=== PATIENT | female | born 1975 | race Caucasian/White ===

== ENCOUNTER 2020-09-07 13:28 | Emergency (ER) | payer OTHER, SELFPAY ==
[2020-09-07 14:00] VITALS: BP 161/89; PULSE 93; RESP 18; TEMP 36.8; O2SAT 95; BMI 28.2
[2020-09-07 15:28] LABS: MANUAL DIFF FLAG NO
[2020-09-07 15:29] LABS: Eosinophils Percent Auto 0.4 % (0-4); Hematocrit 40.4 % (37-47); Hemoglobin 13.4 g/dl (12.0-16.0); Imm Gran Abs Auto 0.01 X10*3/uL (0.00-0.03); Imm Gran Pct Auto 0.2 % (0.0-0.4); Lymphocytes Absolute Auto 1.4 X10*3/uL (1.2-4.9); Lymphocytes Percent Auto 28.4 % (20-40); Mean Corpuscular HGB Conc 33.2 g/dl (31.0-35.0); Mean Corpuscular Hemoglobin 31.4 pg (27.0-33.0); Mean Corpuscular Volume 94.6 fL (80-98); Mean Platelet Volume 10.3 fL (9.4-12.3); Monocytes Absolute Auto 0.5 X10*3/uL (0.1-1.2); Monocytes Percent Auto 9.6 % (2-11); Neutrophils Percent Auto 61.4 % (45-73); Platelet Count 245 X10*3/uL (160-400); Red Blood Count 4.27 X10*6/uL (4.20-5.50); Red Cell Distribution Width 12.7 % (11.0-16.0); White Blood Count 4.9 X10*3/uL (4.8-10.8)
[2020-09-07 15:53] LABS: Alanine Aminotransferase 25 U/L (0-31); Albumin Level 3.7 g/dL (3.5-5.0); Alkaline Phosphatase 69 U/L (39-117); Anion Gap 12 (12-20); Aspartate Amino Transferase 25 U/L (5-31); Bilirubin Total 0.4 mg/dL (0.0-1.0); Blood Urea Nitrogen 14 mg/dL (9-16); Calcium 8.5 mg/dL (8.4-10.2); Carbon Dioxide 27 mmol/L (22-29); Chloride 107 mmol/L (96-108); Creatinine Clr Calc Pharmacy 95.4; Estimated Glomerular Filt Rate > 60; Glucose Random 87 mg/dL (60-115); Potassium 3.8 mmol/L (3.3-5.1); Sodium 142 mmol/L (135-145); Total Protein 7.2 g/dL (6.5-8.0)
[2020-09-07] MEDS: 0.9 % Sodium Chloride 1,000 ML 999 ML IVCONT ×2 (17:55→18:34)
[2020-09-07] MEDS: Metoclopramide HCl 10 MG/2 ML VIAL IVPUSH (17:55)
[2020-09-07] MEDS: diphenhydrAMINE HCL 50 MG/ML VIAL IVPUSH (17:55)
[2020-09-07 18:36] VITALS: BP 158/88; PULSE 92; RESP 18
--- NOTE | 2020-09-07 18:49 | ED.NAVMDI ---
HPI - Nausea/Vomiting/Diarrhea General Chief complaint: Nausea/Vomiting/Diarrhea Stated complaint: vomiting, dizziness, shortness of breath Time Seen by Provider: 09/07/20 17:19 Source: patient Mode of arrival: ambulatory Limitations: no limitations History of Present Illness HPI Narrative: 44-year-old female diagnosed COVID positive 2 weeks ago presents with intractable nausea, vomiting, and abdominal pain. Also states that things taste awful and does not feel like eating. She has not been able to eat and drink over the past 24 hours and has had several episodes of diarrhea. Does not report any fevers, chills, chest pain or pressure, palpitations, shortness breath, abdominal distention, dysuria, hematuria, or edema. MD elicited complaint: nausea, vomiting and diarrhea Pertinent past history: other (Positive COVID-19) Onset (ago): week(s) (To) Description of vomiting: watery Description of diarrhea: watery Associated nausea: Yes Associated abdominal pain: Yes Location of pain: diffuse Pain consistency: intermittent Severity: moderate Quality: cramping Relieving factors: none Associated symptoms: denies other symptoms Related Data Previous Rx's Medication Instructions Recorded ondansetron HCl [Zofran] 4 mg PO Q8H PRN #20 tab 09/07/20 Allergies Allergy/AdvReac Type Severity Reaction Status Date / Time No Known Allergies Allergy Verified 09/07/20 14:03 Review of Systems Review of Systems: Constitutional: No Weight loss, No Fever, No Chills, No Night Sweats, No Fatigue, No Malaise ENT/Mouth: No Hearing loss, No Ear Pain, No Nasal Congestion, No Sinus Pain, No Hoarseness, No sore throat, No Rhinorrhea, No Swallowing Difficulty Eyes: No Eye Pain, No Swelling, No Redness, No Foreign Body, No Discharge, No Vision Changes Cardiovascular: No Chest Pain, No SOB, No Dyspnea on Exertion, No Orthopnea, No Edema, No Palpitations Respiratory: No Cough, No Sputum, No Wheezing, No Smoke Exposure, No Dyspnea Gastrointestinal: Positive Nausea, Positive Vomiting, positive Diarrhea, positive abdominal Pain, No Hematochezia, No Melena Genitourinary: no irregular bleeding, No Dysuria, No Urinary Frequency, No Hematuria, No Urinary Incontinence, No Urgency, No Flank Pain, No Urinary Flow Changes, No Hesitancy Musculoskeletal: No joint pain, No Myalgias, No Joint Swelling Skin: No Skin Lesions, No rash Neuro: No Weakness, No Numbness, No Paresthesias, No Loss of Consciousness, No Dizziness, No Headache Psych: No Anxiety/Panic, No Depression, No SI/HI/AH/VH, No Social Issues Heme/Lymph: No Bruising, No Bleeding,No Lymphadenopathy Endocrine: No Polyuria, No Polydipsia, No Temperature Intolerance Yes all other systems are reviewed and are negative Gastrointestinal: Gastrointestinal: Reports nausea PMFSH Past Medical History Attestation statement: The following information was validated with the patient. Source: old records reviewed Medical History No known health problems Social History Social History Advance Directives: No Advance Directives Information Provided: Yes Patient : No Physical Exam Vital Signs: Vital Signs: Last Vital Signs Temp 98.2 F 09/07/20 14:00 Pulse 92 09/07/20 18:36 Resp 18 09/07/20 18:36 BP 158/88 H 09/07/20 18:36 Pulse Ox 95 09/07/20 14:00 Body Mass Index 28.2 Appearance: Alert. Oriented X3. Mild distress. Eyes: Pupils equal, round and reactive to light. ENT: Pharynx normal. Dry mucous membranes. Neck: Normal inspection. Neck supple. CVS: Normal heart rate and rhythm. Pulses normal. Respiratory: No respiratory distress. Breath sounds normal. Abdomen: Soft and nontender. Skin: Skin warm and dry. Normal skin color. Normal skin turgor. Extremities: No lower extremity edema. Neuro: No motor deficit. No sensory deficit. Course Course Course Narrative: 44-year-old female presents 2 weeks status post COVID positive with nausea, vomiting, diarrhea, and inability to taste. Lab values drawn while she was in the emergency department waiting room, no indication of acute findings at this time. Urinalysis is pending. Mucous membranes are dry heart rate slightly tachycardic at 93 beats per minute with a temperature of 98.2?, no indication of SIRS or sepsis secondary to viral infection. Will replete with 2 L of normal saline, give some Reglan and some Benadryl for antiemetic. Approximately 1 hour after receiving 1st bolus patient states to feel much better. Second bolus is infusing. Will discharge home once 2nd bolus is complete. Patient verbalizes understanding of and agrees to plan of care discharge home. MDM - Nausea/Vomiting/Diarrhea MDM Narrative Medical decision making narrative: Dehydration, viral illness, COVID-19 Medical Records Attestation: I reviewed the patient's medical records. Lab Data Attestation: I reviewed the patient's lab results. Result diagrams: 09/07/20 15:24 09/07/20 15:24 Labs: Lab Results 09/07/20 09/07/20 09/07/20 Range/Units 15:24 15:24 19:26 WBC 4.9 (4.8-10.8) X10*3/uL RBC 4.27 (4.20-5.50) X10*6/uL Hgb 13.4 (12.0-16.0) g/dl Hct 40.4 (37-47) % MCV 94.6 (80-98) fL MCH 31.4 (27.0-33.0) pg MCHC 33.2 (31.0-35.0) g/dl RDW 12.7 (11.0-16.0) % Plt Count 245 (160-400) X10*3/uL MPV 10.3 (9.4-12.3) fL Immature Gran % (Auto) 0.2 (0.0-0.4) % Neut % (Auto) 61.4 (45-73) % Lymph % (Auto) 28.4 (20-40) % [place] % (Auto) 9.6 (2-11) % Eos % (Auto) 0.4 (0-4) % Baso % (Auto) 0.0 (0-2) % Lymph # (Auto) 1.4 (1.2-4.9) X10*3/uL [place] # (Auto) 0.5 (0.1-1.2) X10*3/uL Eos # (Auto) 0.0 (0.0-0.4) X10*3/uL Baso # (Auto) 0.0 (0.0-0.2) X10*3/uL Abs Immat Gran (auto) 0.01 (0.00-0.03) X10*3/uL Absolute Neuts (auto) 3.0 (2.0-8.3) X10*3/uL Absolute Nucleated RBC 0.000 (0.0-0.012) X10*3/uL Nucleated RBC % (auto) 0.0 (0.0-0.2) /100WBC Sodium 142 (135-145) mmol/L Potassium 3.8 (3.3-5.1) mmol/L Chloride 107 (96-108) mmol/L Carbon Dioxide 27 (22-29) mmol/L Anion Gap 12 (12-20) BUN 14 (9-16) mg/dL Creatinine 0.80 (0.5-1.4) mg/dL Estim Creat Clear Calc 95.4 Estimated GFR > 60 Random Glucose 87 (60-115) mg/dL Calcium 8.5 (8.4-10.2) mg/dL Total Bilirubin 0.4 (0.0-1.0) mg/dL AST 25 (5-31) U/L ALT 25 (0-31) U/L Alkaline Phosphatase 69 (39-117) U/L Total Protein 7.2 (6.5-8.0) g/dL Albumin 3.7 (3.5-5.0) g/dL Urine Color STRAW Urine Appearance CLEAR Urine pH 6.0 (5.0-8.0) Ur Specific [place] 1.010 (1.005-1.025) Urine Protein NEG (NEG-TRACE) MG/DL Urine Glucose (UA) NEG (NEG) MG/DL Urine Ketones NEG (NEG) MG/DL Urine Blood NEG (NEG) Urine Nitrite NEG (NEG) Ur Leukocyte Esterase NEG (NEG) Critical Care Time Critical Care Time Critical Care Time: Yes Total Critical Care Time: 45 Attestation: I have personally provided critical care time exclusive of time spent on separately billable procedures. Time includes review of laboratory data, radiology results, discussion with consultants, and monitoring for potential decompensation. Interventions were performed as documented. Discharge Plan Discharge Clinical Impression: Dehydration, COVID-19 Patient Disposition: Home, Self-Care Instructions: Dehydration (ED), COVID-19 (Coronavirus Disease 2019) (ED) Additional Instructions: Se le evalu? por s?ntomas relacionados con COVID-19. Le dimos angelia receta para Zofran. [place] medicamento seg?n las indicaciones para aliviar las n?useas y los v?mitos. Beber mucho l?quido. Descansar. Continuar manteniendo el aislamiento social seg?n las pautas estatales y federales. Zhen por elegir [place] departamento de emergencias para anne evaluaci?n. Dulce un seguimiento con anne m?dico de atenci?n primaria seg?n sea necesario. Regrese al departamento de emergencias por cualquier s?ntoma nuevo, preocupante o que empeore. You were evaluated for symptoms related to COVID-19. We gave you a prescription for Zofran. Please take this medication as directed to help with nausea and vomiting. Drink plenty of fluids. Rest. Continue to maintain social isolation per State and Federal guidelines. Thank you for choosing this emergency department for evaluation. Please follow-up with primary care physician as needed. Return to the emergency department for any new, concerning, or worsening symptoms. Prescriptions: New ondansetron HCl [Zofran] 4 mg tablet 4 mg PO Q8H PRN (Reason: nausea and vomiting) Qty: 20 RF: 0
[2020-09-07 19:31] LABS: Glucose Urine UA NEG (NEG); Leukocyte Esterase Urine NEG (NEG); Nitrite Urine NEG (NEG); Urine Blood NEG (NEG); Urine Ketones NEG (NEG); Urine Protein NEG (NEG-TRACE)
[2020-09-07 19:32] LABS: Appearance Urine CLEAR; Color Urine STRAW
== END 2020-09-07 20:47 | disposition home or self-care (01) ==
PROVIDERS: Emergency Provider Internal Medicine
DX: U07.1 COVID-19 (principal); E86.0 Dehydration
CPT/HCPCS: 36415; 80053; 81003; 85025; 96361; 96374; 96375; 99284; J1200; J2765

== ENCOUNTER 2021-03-25 14:27 | Emergency (ER) | payer OTHER, SELFPAY ==
--- NOTE | ~2021-03-25 | CT_ITS ---
EXAMINATION: CT ABDOMEN AND PELVIS WITHOUT CONTRAST CLINICAL INFORMATION: Abdominal pain with question colitis versus kidney stones COMPARISON: None TECHNIQUE: Multidetector volumetric imaging was performed from the superior aspect of the liver through the pubic symphysis. Sagittal and coronal reformatted images were obtained on the technologist's workstation. This CT examination was performed using dose optimization techniques as appropriate, variously including the following: *Automated exposure control *Adjustment of mA and/or kV according to patient size (this includes techniques or standardized protocols for targeted exams where dose is matched to indication/reason for exam; i.e. extremities or head) *Use of iterative reconstruction technique DLP: 629 mGy-cm FINDINGS: LUNG BASES: The visualized lung bases are unremarkable. LIVER, GALLBLADDER, AND BILIARY TREE: The liver is normal in size, shape, and attenuation. No focal hepatic lesion or biliary ductal dilatation is present. The gallbladder is unremarkable with no evidence of radiopaque gallstones, gallbladder wall thickening, or obvious pericholecystic inflammatory changes. PANCREAS: Unremarkable. SPLEEN: Unremarkable. ADRENAL GLANDS: Unremarkable. KIDNEYS AND URETERS: The kidneys are normal in size, shape, and attenuation. No hydronephrosis, hydroureter, or calculi seen. No perinephric stranding. BLADDER: Unremarkable. GASTROINTESTINAL TRACT: The small and large bowel are unremarkable aside from some colonic diverticular changes without diverticulitis. The appendix contains a small appendicolith measuring 2 mm in size the appendix distal to the appendicolith does not contain air.. The tip of the appendix measures 8 mm in diameter but there is noc surrounding inflammatory change. ABDOMINAL WALL: No significant hernia is appreciated. LYMPH NODES: No retroperitoneal lymphadenopathy. VASCULAR: Unremarkable. PELVIC VISCERA: Retroverted uterus is present. An abnormal adnexal mass or free intraperitoneal fluid is not seen OSSEOUS STRUCTURES: Unremarkable. CT/CT abdomen pelvis wo con IMPRESSION: A definite cause for the patient's abdominal pain is not seen. No renal calculi are present and is no evidence of colitis. A small appendicolith is present in the appendix which is filled with fluid without air, but with no surrounding inflammatory change. Findings could represent extremely early changes in the continuum of appendicitis. Fleischner guidelines were followed.
--- NOTE | ~2021-03-25 | XR_ITS ---
EXAMINATION: XR CHEST CLINICAL INFORMATION: Evaluate for pneumonia COMPARISON: None TECHNIQUE: Frontal view of the chest was obtained. FINDINGS: The cardiac silhouette is normal. There is mild diffuse bronchial wall thickening. There are no areas of consolidation. There are no pleural effusions or pneumothoraces. The bones and soft tissues are unremarkable for the patient's age. XR/XR chest 1V IMPRESSION: Bronchial wall thickening may be infectious and/or inflammatory in etiology.
[2021-03-25 16:42] VITALS: BP 189/86; PULSE 104; RESP 20; TEMP 38.2; BMI 23.8
[2021-03-25 17:12] LABS: Hematocrit 42.4 % (37.0-47.0); Hemoglobin 13.9 g/dl (12.0-16.0); Mean Corpuscular HGB Conc 32.8 g/dl (31.0-35.0); Mean Corpuscular Hemoglobin 31.1 pg (27.0-33.0); Mean Corpuscular Volume 94.9 fL (80.0-98.0); Mean Platelet Volume 10.4 fL (9.4-12.3); Platelet Count 296 X10*3/uL (160-400); Red Blood Count 4.47 X10*6/uL (4.20-5.50); Red Cell Distribution Width 13.5 % (11.0-16.0); White Blood Count 7.5 X10*3/uL (4.8-10.8)
[2021-03-25 17:23] LABS: Anion Gap 12 (12-20); Blood Urea Nitrogen 15 mg/dL (9-16); Calcium 9.1 mg/dL (8.4-10.2); Carbon Dioxide 25 mmol/L (22-29); Chloride 104 mmol/L (96-108); Creatinine Clr Calc Pharmacy 57.3; Estimated Glomerular Filt Rate > 60; Glucose Random 101 mg/dL (60-115); Potassium 3.4 mmol/L (3.3-5.1); Sodium 138 mmol/L (135-145)
[2021-03-25 17:29] LABS: COVID-19 Test Negative (Negative); IDNOW Serial# 9DD0AD1C
--- NOTE | 2021-03-25 18:12 | ED.GENADULT ---
HPI - General Adult General Chief complaint: Upper Respiratory Symptoms Stated complaint: fever vomiting body aches Time Seen by Provider: 03/25/21 18:02 Source: patient Mode of arrival: ambulatory Limitations: no limitations History of Present Illness HPI narrative: 45-year-old female presents to ED for body aches, chills, fever, headache, abdominal pain and diarrhea. Patient still having symptoms for the past 3 days. Patient states her also having similar symptoms. Patient states she is not vaccinated against COVID. Patient her and was exposed to friend was positive for COVID a couple days ago. Related Data Previous Rx's Medication Instructions Recorded ondansetron HCl 4 mg tablet 4 mg PO Q8H PRN #20 tab 09/07/20 (Zofran) amoxicillin 875 mg-potassium 1 tab PO Q12H 5 Days #10 tab 03/25/21 clavulanate 125 mg tablet (Augmentin) azithromycin 250 mg tablet See Rx Instructions .ROUTE 03/25/21 .COMPLEX #6 tab Allergies Allergy/AdvReac Type Severity Reaction Status Date / Time No Known Allergies Allergy Verified 09/07/20 14:03 Review of Systems Review of Systems: Yes all other systems are reviewed and are negative Constitutional: Constitutional: Reports as per HPI, Reports no additional constitutional complaints, Reports body ache(s), Reports chills, Reports fever(s) and Reports headache(s) Eyes: Eyes: Reports as per HPI and Reports no additional eye complaints ENT: Reports system reviewed and no additional complaints, except as documented and Reports headache(s) Cardiovascular: Cardiovascular: Reports as per HPI, Reports no additional cardiovascular complaints, Denies chest pain, Denies chest pain at rest and Denies dyspnea Respiratory: Respiratory: Reports as per HPI, Reports no additional respiratory complaints, Denies cough and Denies dyspnea Gastrointestinal: Gastrointestinal: Reports as per HPI, Reports no additional gastrointestinal complaints, Reports abdominal pain and Reports diarrhea Genitourinary: Genitourinary: Reports no additional female genitourinary complaints and Reports as per HPI Musculoskeletal: Musculoskeletal: Reports no additional musculoskeletal complaints and Reports as per HPI Neurologic: Reports system reviewed and no additional complaints, except as documented, Reports as per HPI and Reports headache(s) Psychiatric: Psychiatric: Reports no additional psychiatric complaints and Reports as per HPI Endocrine: Endocrine: Reports no additional endocrine complaints and Reports as per HPI [facility] [place] Past Medical History Medical History No known health problems Social History Social History Advance Directives: No Advance Directives Information Provided: No Patient : No Physical Exam Vital Signs: Vital Signs: Last Vital Signs Temp 98.3 F 03/25/21 22:28 Pulse 95 03/25/21 22:28 Resp 20 03/25/21 22:28 BP 150/95 H 03/25/21 22:28 Pulse Ox 95 03/25/21 22:28 BMI result Body Mass Index 23.8 Const: General: cooperative, healthy appearing, comfortable, no acute distress and well developed Orientation/consciousness: oriented to time and patient oriented x3 HENMT: Head: Yes normal to inspection, Yes No palpable skull fracture present, Yes normocephalic and Yes atraumatic Eyes: Other: Negative for photophobia or nystagmus General: appearance normal, both eyes and all related structures Neck: Neck: Yes normal visual inspection, Yes full ROM, Yes no lymphadenopathy, Yes no meningeal signs, Yes trachea midline, Yes supple, No anterior neck swelling and No tender Chest: Chest palpation & inspection: normal inspection of the chest and normal palpation of entire chest wall Resp: Effort & Inspection: normal respiratory effort and able to speak in complete sentences Auscultation: clear to auscultation bilaterally Cardio: Jugular venous distension: no JVD Heart sounds: S1 normal heart sound present and S2 normal heart sound present GI: Inspection: Yes normal to inspection and No abdominal wall ecchymosis Palpation (GI): Soft to palpation, not firm, nontender, no guarding and not rigid : General: No CVA tenderness and Yes no CVA tenderness Back/Spine/Pelvis: Back: no CVA tenderness, No CVA tenderness and No back tenderness Skin: General skin exam: no rashes or lesions noted and elasticity normal Neuro: General: oriented to time, patient oriented x3, gait normal and no meningeal signs Cranial nerves: Yes CN's II-XII intact bilaterally Extrem: General: Yes normal to inspection and Yes full ROM Psych: Appearance: grossly normal, well kempt and not disheveled Course Course Course Narrative: Patient had COVID swabbing labs drawn. Patient has fever Reevaluation(s) Reevaluation #1: COVID swab negative. Labs normal. Patient states history of HIV and compliant with her meds. Symptoms due to viral syndrome due to exposure to COVID although COVID swab negative. This may be false negative but due to patient's history of HIV will do chest x-ray mentions no pneumonia. Willing for UA to make sure there is no new UTI. Physical exam does not indicate meningitis. Time: 18:27 Reevaluation #2: Chest x-ray shows bilateral bronchial wall thickening no focal consolidation but with history of HIV was discharged with antibiotics and she has pneumonia. Waiting for UA Reevaluation #3: Ua shows blood and patient is not on her menstruation. Will send for abdominal CT scan to make sure there is not kidnsye stones. Additional Reevaluation(s): CT scan stated appendicolith with no inflammatory changes and radiologist state may be possible early appendicitis. Case was discussed with surgeon Dr. Gomez who states very unlikely patient is having appendicitis. She was informed of patient's history, physical exam, vital signs. Also she was sent CT scan report. Patient is well-appearing. She states patient should follow up with outpatient surgeon clinic but also should return to the ED immediately if abdominal pain worsens or have fever or chills. Patient on re-evaluation negative for any rebound tenderness, psoas sign, Rovsing signs, or nadira jhar sign. Patient was informed of surgeon's recommendation and she states she will follow up with outpatient surgery clinic and return to the ED immediately if symptoms worsen. Repeat vital signs normal. Patient's was also a ED patient and tested positive for COVID patient most likely is a false negative for COVID. Due to HIV status antibiotics was given for bronchial wall thickening reading on x-ray. Medical Decision Making Lab Data Result diagrams: 03/25/21 17:00 03/25/21 17:00 Labs: Lab Results 03/25/21 03/25/21 03/25/21 Range/Units 17:00 17:00 17:00 WBC 7.5 (4.8-10.8) X10*3/uL RBC 4.47 (4.20-5.50) X10*6/uL Hgb 13.9 (12.0-16.0) g/dl Hct 42.4 (37.0-47.0) % MCV 94.9 (80.0-98.0) fL MCH 31.1 (27.0-33.0) pg MCHC 32.8 (31.0-35.0) g/dl RDW 13.5 (11.0-16.0) % Plt Count 296 (160-400) X10*3/uL MPV 10.4 (9.4-12.3) fL Absolute Nucleated RBC 0.000 (0.0-0.012) X10*3/uL Nucleated RBC % (auto) 0.0 (0.0-0.2) /100WBC Sodium 138 (135-145) mmol/L Potassium 3.4 (3.3-5.1) mmol/L Chloride 104 (96-108) mmol/L Carbon Dioxide 25 (22-29) mmol/L Anion Gap 12 (12-20) BUN 15 (9-16) mg/dL Creatinine 0.98 (0.5-1.4) mg/dL Estim Creat Clear Calc 57.3 Estimated GFR > 60 Random Glucose 101 (60-115) mg/dL Calcium 9.1 D (8.4-10.2) mg/dL Urine Color Urine Appearance Urine pH (5.0-8.0) Ur Specific [place] (1.005-1.025) Urine Protein (NEG-TRACE) MG/DL Urine Glucose (UA) (NEG) MG/DL Urine Ketones (NEG) MG/DL Urine Blood (NEG) Urine Nitrite (NEG) Ur Leukocyte Esterase (NEG) Urine RBC (0) /HPF Urine WBC (0-4) /HPF Ur Squamous Epith Cells /LPF Amorphous Sediment /LPF Urine Bacteria /LPF Granular Casts /LPF Urine Mucus /LPF Urine Test (NEGATIVE) COVID-19 (NATHAN) Negative (Negative) COVID-19 Clin Com See Note 03/25/21 03/25/21 Range/Units 18:41 18:41 WBC (4.8-10.8) X10*3/uL RBC (4.20-5.50) X10*6/uL Hgb (12.0-16.0) g/dl Hct (37.0-47.0) % MCV (80.0-98.0) fL MCH (27.0-33.0) pg MCHC (31.0-35.0) g/dl RDW (11.0-16.0) % Plt Count (160-400) X10*3/uL MPV (9.4-12.3) fL Absolute Nucleated RBC (0.0-0.012) X10*3/uL Nucleated RBC % (auto) (0.0-0.2) /100WBC Sodium (135-145) mmol/L Potassium (3.3-5.1) mmol/L Chloride (96-108) mmol/L Carbon Dioxide (22-29) mmol/L Anion Gap (12-20) BUN (9-16) mg/dL Creatinine (0.5-1.4) mg/dL Estim Creat Clear Calc Estimated GFR Random Glucose (60-115) mg/dL Calcium (8.4-10.2) mg/dL Urine Color YELLOW Urine Appearance CLEAR Urine pH 5.5 (5.0-8.0) Ur Specific [place] >= 1.030 H (1.005-1.025) Urine Protein 1+ H (NEG-TRACE) MG/DL Urine Glucose (UA) NEG (NEG) MG/DL Urine Ketones 15 (NEG) MG/DL Urine Blood 1+ H (NEG) Urine Nitrite NEG (NEG) Ur Leukocyte Esterase NEG (NEG) Urine RBC 0-2 (0) /HPF Urine WBC 0-2 (0-4) /HPF Ur Squamous Epith Cells 1+ /LPF Amorphous Sediment TRACE /LPF Urine Bacteria 1+ /LPF Granular Casts 0-2 /LPF Urine Mucus 2+ /LPF Urine Test NEGATIVE (NEGATIVE) COVID-19 (NATHAN) (Negative) COVID-19 Clin Com Discharge Plan Discharge Clinical Impression: Pneumonia, Abdominal pain Patient Disposition: Home, Self-Care Instructions: Abdominal Pain (ED), Pneumonia (ED) Additional Instructions: Tu prueba de covid result? negativa. La radiograf?a de t?rax mostr? posible neumon?a. Se le anastasia? de racquel con antibi?ticos. La tomograf?a computarizada abdominal muestra apendicolito. El cirujano no val que tenga apendicitis. Mary Jane recomienda hacer un seguimiento con la cl?emeterio del cirujano general. Regrese al servicio de urgencias inmediatamente si empeora el dolor abdominal, el dolor en el pecho, la falta de aire, la fiebre, los escalofr?os, la debilidad o cualquier otro s?ntoma que le preocupe. Dulce un seguimiento con el proveedor de atenci?n primaria.Recomiende volver a realizar la prueba de covid en 5 d?as si los s?ntomas contin?an. Puede ser un falso negativo. Prescriptions: New amoxicillin-pot clavulanate [Augmentin] 875-125 mg tablet 1 tab PO Q12H 5 Days Qty: 10 RF: 0 azithromycin 250 mg tablet See Rx Instructions .ROUTE .COMPLEX Qty: 6 RF: 0 No Action ondansetron HCl [Zofran] 4 mg tablet 4 mg PO Q8H PRN (Reason: nausea and vomiting) Qty: 20 RF: 0 Referrals: Charles Arnold MD [Physician] - 2 days (Appendicolith as per CT scan) Interventions: ED Discharge Assessment Last Done: 03/25/21 22:24 Discharge Date/Time: 03/25/21 22:29 Print Language: Vietnamese
[2021-03-25] MEDS: Ibuprofen 800 MG TABLET PO (18:33)
[2021-03-25 18:50] LABS: Appearance Urine CLEAR; Color Urine YELLOW; Glucose Urine UA NEG (NEG); Leukocyte Esterase Urine NEG (NEG); Nitrite Urine NEG (NEG); PH 5.5 (5.0-8.0); Specific Gravity - Urine >= 1.030 (1.005-1.025); UACC Culture Trigger NO; Urine Blood 1+ (NEG); Urine Ketones 15 MG/DL (NEG); Urine Protein 1+ MG/DL (NEG-TRACE)
[2021-03-25 18:53] LABS: UPreg QC Valid YES; Urine Pregnancy NEGATIVE (NEGATIVE)
[2021-03-25 19:08] LABS: Bacteria Urine 1+ /LPF; Granular Casts Urine 0-2 /LPF; Mucus Urine 2+ /LPF; RBC Urine 0-2 /HPF (0); Squamous Epithelial Cell Urine 1+ /LPF
[2021-03-25 19:09] LABS: Amorphous Sediment Urine TRACE /LPF; WBC Urine 0-2 /HPF (0-4)
[2021-03-25 22:28] VITALS: BP 150/95; PULSE 95; RESP 20; TEMP 36.8; O2SAT 95
== END 2021-03-25 22:29 | disposition home or self-care (01) ==
PROVIDERS: Physician Assistant; Emergency Provider Emergency Medicine Emergency Medical Services
DX: J18.9 Pneumonia, unspecified organism (principal); R10.9 Unspecified abdominal pain; Z20.822 Contact with and (suspected) exposure to COVID-19; R50.9 Fever, unspecified; B20 Human immunodeficiency virus [HIV] disease
CPT/HCPCS: 36415; 71045; 74176; 80048; 81001; 81025; 85027; 87635; 99283; 99284

== ENCOUNTER 2021-05-27 17:03 | Emergency (ER) | payer OTHER, SELFPAY ==
--- NOTE | ~2021-05-27 | XR_ITS ---
EXAMINATION: XR CHEST CLINICAL INFORMATION: SOB COMPARISON: None TECHNIQUE: Frontal view of the chest was obtained. FINDINGS: No significant abnormality is noted involving the heart, lungs, mediastinum, bony thorax or soft tissues. XR/XR chest 1V IMPRESSION: Unremarkable chest examination.
[2021-05-27 18:05] VITALS: BP 177/88; PULSE 104; RESP 18; TEMP 36.4; O2SAT 97; BMI 28.7
[2021-05-27 18:22] LABS: MANUAL DIFF FLAG NO
[2021-05-27 18:30] LABS: Basophils Absolute Auto 0.1 X10*3/uL (0.0-0.2); Basophils Percent Auto 0.6 % (0-2); Eosinophils Absolute Auto 0.8 X10*3/uL (0.0-0.4); Eosinophils Percent Auto 9.1 % (0-4); Hematocrit 39.4 % (37.0-47.0); Hemoglobin 12.9 g/dl (12.0-16.0); Imm Gran Abs Auto 0.02 X10*3/uL (0.00-0.03); Imm Gran Pct Auto 0.2 % (0.0-0.4); Lymphocytes Absolute Auto 2.3 X10*3/uL (1.2-4.9); Lymphocytes Percent Auto 26.3 % (20-40); Mean Corpuscular HGB Conc 32.7 g/dl (31.0-35.0); Mean Corpuscular Hemoglobin 31.3 pg (27.0-33.0); Mean Corpuscular Volume 95.6 fL (80.0-98.0); Mean Platelet Volume 10.7 fL (9.4-12.3); Monocytes Absolute Auto 0.7 X10*3/uL (0.1-1.2); Monocytes Percent Auto 8.2 % (2-11); Neutrophils Absolute Auto 4.9 x10*3/uL (2.0-8.3); Neutrophils Percent Auto 55.6 % (45-73); Platelet Count 318 X10*3/uL (160-400); Red Blood Count 4.12 X10*6/uL (4.20-5.50); Red Cell Distribution Width 13.4 % (11.0-16.0); White Blood Count 8.9 X10*3/uL (4.8-10.8)
[2021-05-27 18:34] LABS: Anion Gap 13 (12-20); Blood Urea Nitrogen 24 mg/dL (9-16); Calcium 8.8 mg/dL (8.4-10.2); Carbon Dioxide 23 mmol/L (22-29); Chloride 111 mmol/L (96-108); Creatinine Clr Calc Pharmacy 64.9; Estimated Glomerular Filt Rate 57; Glucose Random 96 mg/dL (60-115); Potassium 4.5 mmol/L (3.3-5.1); Sodium 142 mmol/L (135-145)
--- NOTE | 2021-05-27 20:39 | ED.SOB ---
HPI - SOB/Dyspnea General Chief Complaint: Dyspnea Stated Complaint: sneezing, lung infection?, chest pain Time Seen by Provider: 05/27/21 18:20 Source: patient Mode of arrival: ambulatory Limitations: no limitations History of Present Illness HPI Narrative: This is a 45-year-old female no significant medical history presenting to the emergency depart with shortness of breath, productive cough, nasal congestion, wheezing x1 week progressively worsening. Patient tells me this feels like the time she had pneumonia. She tells me she was diagnosed with pneumonia about a month ago. She was sent home on antibiotics and she felt better for a little bit. She tells me that a week ago she started experiencing these symptoms and they have been worsening. She complains of shortness of breath on exertion, she tells me she thinks she is short of breath because of how congested she has. She also reports a productive cough of thick sputum. She is also experiencing nasal congestion and facial pressure. She reports that she is wheezing particularly at night. She denies chest pain, nausea, vomiting, leg pain, leg swelling, weakness, abdominal pain, fevers chills. MD elicited complaint: shortness of breath and cough Pertinent past history: pneumonia Onset (ago): week(s) (1) Context: recent illness (Pneumonia month ago.) Timing: constant Severity: moderate Exacerbating factors: nothing Relieving factors: nothing Associated symptoms: cough Treatment prior to arrival: none Related Data Previous Rx's Medication Instructions Recorded ondansetron HCl 4 mg tablet 4 mg PO Q8H PRN #20 tab 09/07/20 (Zofran) amoxicillin 875 mg-potassium 1 tab PO Q12H 5 Days #10 tab 03/25/21 clavulanate 125 mg tablet (Augmentin) azithromycin 250 mg tablet See Rx Instructions .ROUTE 03/25/21 .COMPLEX #6 tab albuterol sulfate 90 mcg/actuation 2 inh INHALATION Q4-6H PRN #1 ea 05/27/21 breath activated powder inhaler amoxicillin 875 mg-potassium 1 tab PO BID 7 Days #14 tab 05/27/21 clavulanate 125 mg tablet prednisone 20 mg tablet 40 mg PO DAILY 5 Days #10 tab 05/27/21 Allergies Allergy/AdvReac Type Severity Reaction Status Date / Time No Known Allergies Allergy Verified 05/27/21 18:05 Review of Systems Review of Systems: Constitutional : No Weight loss, No Fever, No Chills, No Fatigue, No Malaise ENT/Mouth : No sore throat, + Rhinorrhea, + facial pressure, + nasal congestion Eyes: No Eye Pain, No Swelling, No Redness Cardiovascular : No Chest Pain, No SOB, No Dyspnea on Exertion, No Orthopnea, No Edema, No Palpitations Respiratory : + Cough, + Sputum, + Wheezing Gastrointestinal : No Nausea, No Vomiting, No Diarrhea, No Constipation, No abdominal Pain, No Hematochezia, No Melena Genitourinary : No Dysuria, No Urinary Frequency, No Hematuria, Musculoskeletal : No joint pain, No Myalgias, No Joint Swelling Skin : No Skin Lesions, No rash Neuro : No Weakness, No Numbness, No Dizziness, No Headache Psych : No Anxiety/Panic, No Depression All other systems reviewed and are negative Yes all other systems are reviewed and are negative [facility] Past Medical History Attestation statement: The following information was validated with the patient. Source: old records reviewed and nursing notes reviewed Medical History No known health problems Social History Social History Advance Directives: No Advance Directives Information Provided: No Patient : No Physical Exam Vital Signs: Vital Signs: Last Vital Signs Temp 97.5 F 05/27/21 18:05 Pulse 86 05/27/21 21:09 Resp 18 05/27/21 21:09 BP 177/88 H 05/27/21 18:05 Pulse Ox 97 05/27/21 18:05 BMI result Body Mass Index 28.7 VSS Appearance: Alert.? Oriented X3.? No acute distress.? Head: Normocephalic, atraumatic, no step-offs or deformities Eyes: Pupils equal, round and reactive to light.? ENT: Pharynx normal.? Neck: Normal inspection.? Neck supple.? CVS: Normal heart rate and rhythm.? Pulses normal.? Respiratory: No respiratory distress.? + wheezing throughout Abdomen: Soft and nontender.? Skin: Skin warm and dry.? Normal skin color.? Normal skin turgor.? Extremities: No lower extremity edema.? No calf ttp, negative clint b/l. 5/5 strength to bilateral upper and lower extremities Back: No midline tenderness, no C-spine tenderness, full range of motion, no CVA tenderness bilaterally Neuro: Oriented X 3.? No motor deficit.? No sensory deficit. CN 2-12 intact Course Reevaluation(s) Reevaluation #1: Wheezing improved after DuoNeb. CBC within normal limits. Chemistry with no acute electrolyte abnormalities BUN is noted to be slightly elevated however patient tolerating fluids by mouth. And drinking water. Patient requesting to leave without a COVID test. Patient is noted to be slightly hypertensive. However no longer tachycardic. Tells me she is feeling much better and would like to go. Chest x-ray unremarkable. Based off patient history and physical examination likely this is sinusitis/URI. Unlikely ACS, pneumonia or PE. Patient is not having calf tenderness to palpation, she is not tachycardic or hypoxic. Advised patient to return with new or worsening symptoms. Outlined he is on her discharge. Also advised her to follow-up with her PCP. Time: 22:01 MDM - SOB/Dyspnea MDM Narrative Medical decision making narrative: 2048 45 yo f no pmhx presents with URI sx X1 week and facial congestion/ pressure. PE significant for wheezing throughout. Regular rate and rhythm. Abdomen soft nontender nondistended. Negative [place] bilaterally. History and physical examination not consistent with CHF, ACS. Unlikely that this is PE patient is not complaining of pleuritic chest pain, she is not hypoxic, tachypneic or tachycardic. Plan-labs, imaging Medical Records Attestation: I reviewed the patient's medical records. Lab Data Attestation: I reviewed the patient's lab results. Result diagrams: 05/27/21 18:16 05/27/21 18:16 Labs: Lab Results 05/27/21 05/27/21 Range/Units 18:16 18:16 WBC 8.9 (4.8-10.8) X10*3/uL RBC 4.12 L (4.20-5.50) X10*6/uL Hgb 12.9 (12.0-16.0) g/dl Hct 39.4 (37.0-47.0) % MCV 95.6 (80.0-98.0) fL MCH 31.3 (27.0-33.0) pg MCHC 32.7 (31.0-35.0) g/dl RDW 13.4 (11.0-16.0) % Plt Count 318 (160-400) X10*3/uL MPV 10.7 (9.4-12.3) fL Immature Gran % (Auto) 0.2 (0.0-0.4) % Neut % (Auto) 55.6 (45-73) % Lymph % (Auto) 26.3 (20-40) % [place] % (Auto) 8.2 (2-11) % Eos % (Auto) 9.1 H (0-4) % Baso % (Auto) 0.6 (0-2) % Lymph # (Auto) 2.3 (1.2-4.9) X10*3/uL [place] # (Auto) 0.7 (0.1-1.2) X10*3/uL Eos # (Auto) 0.8 H (0.0-0.4) X10*3/uL Baso # (Auto) 0.1 (0.0-0.2) X10*3/uL Abs Immat Gran (auto) 0.02 (0.00-0.03) X10*3/uL Absolute Neuts (auto) 4.9 (2.0-8.3) x10*3/uL Absolute Nucleated RBC 0.000 (0.0-0.012) X10*3/uL Nucleated RBC % (auto) 0.0 (0.0-0.2) /100WBC Sodium 142 (135-145) mmol/L Potassium 4.5 D (3.3-5.1) mmol/L Chloride 111 H (96-108) mmol/L Carbon Dioxide 23 (22-29) mmol/L Anion Gap 13 (12-20) BUN 24 H D (9-16) mg/dL Creatinine 1.05 (0.5-1.4) mg/dL Estim Creat Clear Calc 64.9 Estimated GFR 57 Random Glucose 96 (60-115) mg/dL Calcium 8.8 (8.4-10.2) mg/dL Critical Care Time Critical Care Time Critical Care Time: No Discharge Plan Discharge Clinical Impression: Bronchitis, Sinusitis Patient Disposition: Home, Self-Care Instructions: Acute Bronchitis (ED) Additional Instructions: Take your medications as prescribed. If you were prescribed antibiotics today, it is important that you take your medication to their entirety, do not skip any doses, do not finish them early. Follow-up with your primary care provider this week. Return to the emergency department with new or worsening symptoms. Such as chest pain, shortness of breath, leg swelling, calf pain, nausea, vomiting, abdominal pain, fevers, chills, lethargy, weakness. In case of emergency call 911 Prescriptions: New prednisone 20 mg tablet 40 mg PO DAILY 5 Days Qty: 10 0RF amoxicillin-pot clavulanate 875-125 mg tablet 1 tab PO BID 7 Days Qty: 14 0RF albuterol sulfate 90 mcg/actuation aerosol powdr breath activated 2 inh inhalation Q4-6H PRN (Reason: shortness of breath or wheezing) Qty: 1 0RF No Action ondansetron HCl [Zofran] 4 mg tablet 4 mg PO Q8H PRN (Reason: nausea and vomiting) Qty: 20 0RF amoxicillin-pot clavulanate [Augmentin] 875-125 mg tablet 1 tab PO Q12H 5 Days Qty: 10 0RF azithromycin 250 mg tablet See Rx Instructions .ROUTE .COMPLEX Qty: 6 0RF Rx Instructions: For 250 mg dose pack: take 500 mg today (day 1), then 250 mg for 4 days (days 2-5) Referrals: Physician,None [Primary Care Provider] - 2 days Stand Alone Forms: Work/School Release
[2021-05-27] MEDS: Albuterol/Iprat 2.5/0.5MG 3 ML AMPUL.NEB INHALE (21:08)
[2021-05-27 21:09] VITALS: PULSE 86; RESP 18; O2SAT 98
--- NOTE | 2021-05-27 21:12 | PC.NURSE ---
PT AWAITING FOR RESPIRATORY TREATMENT. PT REQUESTING TO LEAVE TO PICKUP PRESCRIPTION FOR HER DAUGHTER. PT UP AMBULATING W/O DIFFICULTY. PT REMAINS ALERT, RESPIRATIONS EASY, N/L. SKIN W/D.
== END 2021-05-27 22:05 | disposition home or self-care (01) ==
PROVIDERS: Emergency Provider Emergency Medicine
DX: J40 Bronchitis, not specified as acute or chronic (principal); J32.9 Chronic sinusitis, unspecified; I10 Essential (primary) hypertension; R06.02 Shortness of breath
CPT/HCPCS: 36415; 71045; 80048; 85025; 94640; 99283; 99284

== ENCOUNTER 2021-10-22 16:12 | Emergency (ER) | payer OTHER, SELFPAY ==
[2021-10-22 18:13] VITALS: BP 187/103; PULSE 89; RESP 16; TEMP 36.6; O2SAT 97; BMI 28.3
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
[2021-10-22 22:29] VITALS: BP 177/98; PULSE 80; O2SAT 100
[2021-10-22] MEDS: Ketorolac Tromethamine 15 MG/ML VIAL IM (22:30)
== END 2021-10-22 22:50 | disposition home or self-care (01) ==
PROVIDERS: Emergency Provider Internal Medicine
DX: S13.4XXA Sprain of ligaments of cervical spine, initial encounter (principal); S06.0X0A Concussion without loss of consciousness, initial encounter; V43.62XA Car passenger injured in collision with other type car in traffic accident, initial encounter; Y93.9 Activity, unspecified; Y92.410 Unspecified street and highway as the place of occurrence of the external cause; Y99.9 Unspecified external cause status; Z79.899 Other long term (current) drug therapy
CPT/HCPCS: 96372; 99283; 99284; J1885

== ENCOUNTER 2022-02-20 15:20 | Emergency (ER) | payer OTHER, SELFPAY ==
--- NOTE | 2022-02-20 15:48 | ED_ITS ---
HPI - General Adult General Chief complaint: General Medical Stated complaint: dehydrated Time Seen by Provider: 02/20/22 18:33 Related Data Previous Rx's Medication Instructions Recorded ondansetron HCl 4 mg tablet 4 mg PO Q8H PRN nausea and 09/07/20 (Zofran) vomiting #20 tabs amoxicillin 875 mg-potassium 1 tab PO Q12H 5 days #10 tabs 03/25/21 clavulanate 125 mg tablet (Augmentin) azithromycin 250 mg tablet See Rx Instructions PO .COMPLEX #6 03/25/21 tabs albuterol sulfate 90 mcg/actuation 2 inh inhalation Q4-6H PRN 05/27/21 breath activated powder inhaler shortness of breath or wheezing #1 ea amoxicillin 875 mg-potassium 1 tab PO BID 7 days #14 tabs 05/27/21 clavulanate 125 mg tablet prednisone 20 mg tablet 40 mg PO DAILY 5 days #10 tabs 05/27/21 lidocaine 5 % topical patch 1 patch topical DAILY PRN pain #15 10/22/21 ea Allergies Allergy/AdvReac Type Severity Reaction Status Date / Time No Known Allergies Allergy Verified 10/22/21 18:18 [facility] Past Medical History Medical History No known health problems Social History Social History Advance Directives: No Advance Directives Information Provided: Yes Physical Exam ED Vital Signs: BMI result Body Mass Index 25.6 Course Course Course Narrative: RME: Patient is a 46-year-old female with a past medical history of HTN, HIV with undetectable viral load by report. She presents emergency department for evaluation of dehydration. Reports oral mucosa is dry, has not been able to sleep past 2 days, and unable to urinate x 2 days, dizziness, fatigue. Denies this ever happening in the past. States she hasn't really been feeling well with mild nausea, therefore she has not been drinking or eating. She also is feeling palpitations and ABD pain PE: Oral mucosa is dry, LSCTA, no respratory distress, heart sounds normal, S1/S2, no nurmur, diffuse lower ABD tenderness Plan: CBC, CMP, urinalysis, ur preg, troponin, EKG, COVID-19/influenza testing Medications Administered Discontinued Medications Generic Name Dose Route Start Last Admin Trade Name Pepito PRN Reason Stop Dose Admin Sodium Chloride 1,000 mls @ 999 mls/hr 02/20/22 18:45 02/20/22 21:51 Ns IVCONT 02/20/22 20:45 Infused .Q1H1M LELA Infusion Medical Decision Making Lab Data Result diagrams: 02/20/22 16:54 02/20/22 16:54 Labs: Lab Results 02/20/22 02/20/22 02/20/22 Range/Units 16:49 16:50 16:54 WBC 7.8 (4.8-10.8) X10*3/uL RBC 4.41 (4.20-5.50) X10*6/uL Hgb 14.2 (12.0-16.0) g/dl Hct 42.1 (37.0-47.0) % MCV 95.5 (80.0-98.0) fL MCH 32.2 (27.0-33.0) pg MCHC 33.7 (31.0-35.0) g/dl RDW 13.2 (11.0-16.0) % Plt Count 341 (160-400) X10*3/uL MPV 10.8 (9.4-12.3) fL Immature Gran % (Auto) 0.3 (0.0-0.4) % Neut % (Auto) 59.4 (45-73) % Lymph % (Auto) 29.2 (20-40) % [facility] % (Auto) 9.4 (2-11) % Eos % (Auto) 1.3 (0-4) % Baso % (Auto) 0.4 (0-2) % Lymph # (Auto) 2.3 (1.2-4.9) X10*3/uL [facility] # (Auto) 0.7 (0.1-1.2) X10*3/uL Eos # (Auto) 0.1 (0.0-0.4) X10*3/uL Baso # (Auto) 0.0 (0.0-0.2) X10*3/uL Abs Immat Gran (auto) 0.02 (0.00-0.03) X10*3/uL Absolute Neuts (auto) 4.6 (2.0-8.3) x10*3/uL Absolute Nucleated RBC 0.000 (0.0-0.012) X10*3/uL Nucleated RBC % (auto) 0.0 (0.0-0.2) /100WBC Sodium (135-145) mmol/L Potassium (3.3-5.1) mmol/L Chloride (96-108) mmol/L Carbon Dioxide (22-29) mmol/L Anion Gap (12-20) BUN (9-16) mg/dL Creatinine (0.5-1.4) mg/dL Estim Creat Clear Calc Estimated GFR Random Glucose (60-115) mg/dL Calcium (8.4-10.2) mg/dL Total Bilirubin (0.0-1.0) mg/dL AST (5-31) U/L ALT (0-31) U/L Alkaline Phosphatase (39-117) U/L Troponin I High Sens (<3.5-17.0) ng/L Total Protein (6.5-8.0) g/dL Albumin (3.5-5.0) g/dL Urine Color Urine Appearance Urine pH (5.0-9.0) Ur Specific [place] (1.005-1.025) Urine Protein (Neg-Trace) mg/dL Urine Glucose (UA) (Negative) mg/dL Urine Ketones (Negative) mg/dL Urine Blood (Negative) Urine Nitrite (Negative) Ur Leukocyte Esterase (Negative) Urine Test (NEGATIVE) COVID-19 (NTAHAN) Negative (Negative) COVID-19 Clin Com See Note Influenza Type A (ELI) Negative (Negative) Influenza Type B (EIL) Negative (Negative) Influenza A & B Note See Note 02/20/22 02/20/22 02/20/22 Range/Units 16:54 16:54 20:41 WBC (4.8-10.8) X10*3/uL RBC (4.20-5.50) X10*6/uL Hgb (12.0-16.0) g/dl Hct (37.0-47.0) % MCV (80.0-98.0) fL MCH (27.0-33.0) pg MCHC (31.0-35.0) g/dl RDW (11.0-16.0) % Plt Count (160-400) X10*3/uL MPV (9.4-12.3) fL Immature Gran % (Auto) (0.0-0.4) % Neut % (Auto) (45-73) % Lymph % (Auto) (20-40) % [facility] % (Auto) (2-11) % Eos % (Auto) (0-4) % Baso % (Auto) (0-2) % Lymph # (Auto) (1.2-4.9) X10*3/uL [facility] # (Auto) (0.1-1.2) X10*3/uL Eos # (Auto) (0.0-0.4) X10*3/uL Baso # (Auto) (0.0-0.2) X10*3/uL Abs Immat Gran (auto) (0.00-0.03) X10*3/uL Absolute Neuts (auto) (2.0-8.3) x10*3/uL Absolute Nucleated RBC (0.0-0.012) X10*3/uL Nucleated RBC % (auto) (0.0-0.2) /100WBC Sodium 144 (135-145) mmol/L Potassium 3.5 D (3.3-5.1) mmol/L Chloride 110 H (96-108) mmol/L Carbon Dioxide 22 (22-29) mmol/L Anion Gap 15 (12-20) BUN 21 H (9-16) mg/dL Creatinine 1.25 (0.5-1.4) mg/dL Estim Creat Clear Calc 49.2 Estimated GFR 46 Random Glucose 91 (60-115) mg/dL Calcium 9.7 D (8.4-10.2) mg/dL Total Bilirubin 0.6 (0.0-1.0) mg/dL AST 14 (5-31) U/L ALT 11 (0-31) U/L Alkaline Phosphatase 75 (39-117) U/L Troponin I High Sens 6.6 (<3.5-17.0) ng/L Total Protein 8.1 H (6.5-8.0) g/dL Albumin 4.4 (3.5-5.0) g/dL Urine Color Yellow Urine Appearance Clear Urine pH 6.0 (5.0-9.0) Ur Specific [place] <= 1.005 (1.005-1.025) Urine Protein Negative (Neg-Trace) mg/dL Urine Glucose (UA) Negative (Negative) mg/dL Urine Ketones Negative (Negative) mg/dL Urine Blood Negative (Negative) Urine Nitrite Negative (Negative) Ur Leukocyte Esterase Negative (Negative) Urine Test (NEGATIVE) COVID-19 (NATHAN) (Negative) COVID-19 Clin Com Influenza Type A (ELI) (Negative) Influenza Type B (ELI) (Negative) Influenza A & B Note 02/20/22 Range/Units 20:41 WBC (4.8-10.8) X10*3/uL RBC (4.20-5.50) X10*6/uL Hgb (12.0-16.0) g/dl Hct (37.0-47.0) % MCV (80.0-98.0) fL MCH (27.0-33.0) pg MCHC (31.0-35.0) g/dl RDW (11.0-16.0) % Plt Count (160-400) X10*3/uL MPV (9.4-12.3) fL Immature Gran % (Auto) (0.0-0.4) % Neut % (Auto) (45-73) % Lymph % (Auto) (20-40) % [facility] % (Auto) (2-11) % Eos % (Auto) (0-4) % Baso % (Auto) (0-2) % Lymph # (Auto) (1.2-4.9) X10*3/uL [facility] # (Auto) (0.1-1.2) X10*3/uL Eos # (Auto) (0.0-0.4) X10*3/uL Baso # (Auto) (0.0-0.2) X10*3/uL Abs Immat Gran (auto) (0.00-0.03) X10*3/uL Absolute Neuts (auto) (2.0-8.3) x10*3/uL Absolute Nucleated RBC (0.0-0.012) X10*3/uL Nucleated RBC % (auto) (0.0-0.2) /100WBC Sodium (135-145) mmol/L Potassium (3.3-5.1) mmol/L Chloride (96-108) mmol/L Carbon Dioxide (22-29) mmol/L Anion Gap (12-20) BUN (9-16) mg/dL Creatinine (0.5-1.4) mg/dL Estim Creat Clear Calc Estimated GFR Random Glucose (60-115) mg/dL Calcium (8.4-10.2) mg/dL Total Bilirubin (0.0-1.0) mg/dL AST (5-31) U/L ALT (0-31) U/L Alkaline Phosphatase (39-117) U/L Troponin I High Sens (<3.5-17.0) ng/L Total Protein (6.5-8.0) g/dL Albumin (3.5-5.0) g/dL Urine Color Urine Appearance Urine pH (5.0-9.0) Ur Specific [place] (1.005-1.025) Urine Protein (Neg-Trace) mg/dL Urine Glucose (UA) (Negative) mg/dL Urine Ketones (Negative) mg/dL Urine Blood (Negative) Urine Nitrite (Negative) Ur Leukocyte Esterase (Negative) Urine Test NEGATIVE (NEGATIVE) COVID-19 (NATHAN) (Negative) COVID-19 Clin Com Influenza Type A (ELI) (Negative) Influenza Type B (ELI) (Negative) Influenza A & B Note Discharge Plan Discharge Clinical Impression: Acute dehydration Patient Disposition: Home, Self-Care Instructions: Dehydration (ED) Additional Instructions: You were evaluated for dehydration, with elevated BUN of 21. We gave the 2 L of IV fluid. Please drink plenty of fluids. Thank you for choosing this emergency department for evaluation. Please follow-up with primary care physician as needed. Return to the emergency department for any new, concerning, or worsening symptoms. Prescriptions: No Action ondansetron HCl [Zofran] 4 mg tablet 4 mg PO Q8H PRN (Reason: nausea and vomiting) Qty: 20 0RF amoxicillin-pot clavulanate [Augmentin] 875-125 mg tablet 1 tab PO Q12H 5 Days Qty: 10 0RF azithromycin 250 mg tablet See Rx Instructions .ROUTE .COMPLEX Qty: 6 0RF Rx Instructions: For 250 mg dose pack: take 500 mg today (day 1), then 250 mg for 4 days (days 2-5) prednisone 20 mg tablet 40 mg PO DAILY 5 Days Qty: 10 0RF amoxicillin-pot clavulanate 875-125 mg tablet 1 tab PO BID 7 Days Qty: 14 0RF albuterol sulfate 90 mcg/actuation aerosol powdr breath activated 2 inh inhalation Q4-6H PRN (Reason: shortness of breath or wheezing) Qty: 1 0RF lidocaine 5 % adhesive patch,medicated 1 patch topical DAILY PRN (Reason: pain) Qty: 15 0RF Rx Instructions: leave on most painful area for up to 12 hrs Interventions: ED Discharge Assessment Last Done: 02/20/22 22:08 Discharge Date/Time: 02/20/22 22:10
[2022-02-20 15:49] VITALS: BP 177/94; PULSE 94; RESP 18; TEMP 36.6; O2SAT 98; BMI 25.6
--- NOTE | 2022-02-20 15:56 | ECG_ITS ---
Test Reason : HEART PALP Blood Pressure : / mmHG Vent. Rate : 087 BPM Atrial Rate : 087 BPM P-R Int : 124 ms QRS Dur : 098 ms QT Int : 358 ms P-R-T Axes : 052 065 030 degrees QTc Int : 430 ms Normal sinus rhythm with sinus arrhythmia Possible Left atrial enlargement Incomplete right bundle branch block Borderline ECG No previous ECGs available Referred By: Rita Schulte Electronically Signed By:PAIGE ANDREA MD
[2022-02-20 17:09] LABS: Basophils Percent Auto 0.4 % (0-2); Eosinophils Absolute Auto 0.1 X10*3/uL (0.0-0.4); Eosinophils Percent Auto 1.3 % (0-4); Hematocrit 42.1 % (37.0-47.0); Hemoglobin 14.2 g/dl (12.0-16.0); Imm Gran Abs Auto 0.02 X10*3/uL (0.00-0.03); Imm Gran Pct Auto 0.3 % (0.0-0.4); Lymphocytes Absolute Auto 2.3 X10*3/uL (1.2-4.9); Lymphocytes Percent Auto 29.2 % (20-40); MANUAL DIFF FLAG NO; Mean Corpuscular HGB Conc 33.7 g/dl (31.0-35.0); Mean Corpuscular Hemoglobin 32.2 pg (27.0-33.0); Mean Corpuscular Volume 95.5 fL (80.0-98.0); Mean Platelet Volume 10.8 fL (9.4-12.3); Monocytes Absolute Auto 0.7 X10*3/uL (0.1-1.2); Monocytes Percent Auto 9.4 % (2-11); Neutrophils Absolute Auto 4.6 x10*3/uL (2.0-8.3); Neutrophils Percent Auto 59.4 % (45-73); Platelet Count 341 X10*3/uL (160-400); Red Blood Count 4.41 X10*6/uL (4.20-5.50); Red Cell Distribution Width 13.2 % (11.0-16.0); White Blood Count 7.8 X10*3/uL (4.8-10.8)
[2022-02-20 17:21] LABS: COVID-19 Test Negative (Negative); IDNOW Serial# 16C4AD1C
[2022-02-20 17:23] LABS: IDNOW Serial# BCCEAD1C; Influenza A Negative (Negative); Influenza B2 Negative (Negative)
[2022-02-20 17:23] LABS: Alanine Aminotransferase 11 U/L (0-31); Albumin Level 4.4 g/dL (3.5-5.0); Alkaline Phosphatase 75 U/L (39-117); Anion Gap 15 (12-20); Aspartate Amino Transferase 14 U/L (5-31); Bilirubin Total 0.6 mg/dL (0.0-1.0); Blood Urea Nitrogen 21 mg/dL (9-16); Calcium 9.7 mg/dL (8.4-10.2); Carbon Dioxide 22 mmol/L (22-29); Chloride 110 mmol/L (96-108); Creatinine Clr Calc Pharmacy 49.2; Estimated Glomerular Filt Rate 46; Glucose Random 91 mg/dL (60-115); Potassium 3.5 mmol/L (3.3-5.1); Sodium 144 mmol/L (135-145); Total Protein 8.1 g/dL (6.5-8.0)
[2022-02-20 17:24] LABS: Troponin-I High Sensitivity 6.6 ng/L (<3.5-17.0)
--- NOTE | 2022-02-20 18:34 | ED_ITS ---
HPI - General Adult General Chief complaint: General Medical Stated complaint: dehydrated Time Seen by Provider: 02/20/22 18:33 Source: patient Mode of arrival: ambulatory Limitations: no limitations History of Present Illness HPI narrative: 46-year-old female presents for dehydration. States that she has not been sleeping well for the past 2 days, has not Peed for 24 hours, and has had poor p.o. intake. She states that she has not been thirsty or hungry. She denies fevers and chills, and abnormal weight loss. Onset (ago): day(s) (2) Radiation: non-radiation Severity: moderate Severity scale (1-10): 5 Quality: aching Pain Consistency: constant Relieving factors: none Associated symptoms: malaise and other (Dizziness) Treatments prior to arrival: none Related Data Previous Rx's Medication Instructions Recorded ondansetron HCl 4 mg tablet 4 mg PO Q8H PRN nausea and 09/07/20 (Zofran) vomiting #20 tabs amoxicillin 875 mg-potassium 1 tab PO Q12H 5 days #10 tabs 03/25/21 clavulanate 125 mg tablet (Augmentin) azithromycin 250 mg tablet See Rx Instructions PO .COMPLEX #6 03/25/21 tabs albuterol sulfate 90 mcg/actuation 2 inh inhalation Q4-6H PRN 05/27/21 breath activated powder inhaler shortness of breath or wheezing #1 ea amoxicillin 875 mg-potassium 1 tab PO BID 7 days #14 tabs 05/27/21 clavulanate 125 mg tablet prednisone 20 mg tablet 40 mg PO DAILY 5 days #10 tabs 05/27/21 lidocaine 5 % topical patch 1 patch topical DAILY PRN pain #15 10/22/21 ea Allergies Allergy/AdvReac Type Severity Reaction Status Date / Time No Known Allergies Allergy Verified 10/22/21 18:18 Review of Systems Review of Systems: Constitutional: Positive fatigue, No Fever, No Chills ENT/Mouth: No Ear Pain, No Hoarseness, No sore throat Eyes: No Eye Pain, No Swelling, No Redness, No Foreign Body Cardiovascular: No Chest Pain, No SOB Respiratory: No Cough, No Dyspnea Gastrointestinal: No Nausea, No Vomiting, No Diarrhea, No abdominal Pain Genitourinary: No Dysuria, No Hematuria Musculoskeletal: positive joint pain, positive Myalgias, No Joint Swelling Skin: No Skin lacerations, No rash Neuro: No Weakness, No Numbness, No Paresthesias, No Loss of Consciousness, positive Dizziness, No Headache Psych: No Anxiety/Panic, No Depression Heme/Lymph: no easy bruising, no Lymphadenopathy Endocrine: No Polyuria, No Polydipsia Yes all other systems are reviewed and are negative [facility] Past Medical History Attestation statement: The following information was validated with the patient. Source: old records reviewed Medical History No known health problems Social History Social History Advance Directives: No Advance Directives Information Provided: Yes Physical Exam ED Vital Signs: Vital Signs - 24 hr 02/20/22 15:49 02/20/22 20:42 Temperature 97.9 F 96.4 F L Pulse Rate 94 87 Respiratory Rate 18 18 Blood Pressure 177/94 H 191/89 H Pulse Oximetry 98 97 Oxygen Delivery Method Room Air Room Air BMI result Body Mass Index 25.6 Appearance: Alert. Oriented X3. Mild distress. Eyes: Pupils equal, round and reactive to light. EOMI. ENT: Pharynx normal. Dry mucous membranes. Neck: Normal inspection. Neck supple. CVS: Normal heart rate and rhythm. Pulses normal. Respiratory: No respiratory distress. Breath sounds normal. Abdomen: Soft and nontender. Skin: Skin warm and dry. Normal skin color. Normal skin turgor. Extremities: No lower extremity edema. Gait well-balanced well coordinated. Neuro: No motor deficit. No sensory deficit. Cranial nerves 2-12 intact Course Course Course Narrative: 46-year-old female presents for dehydration. States that she has had poor p.o. intake over the past 2 days, but gives vague reasons why other than she is not feeling very well. Labs were drawn the patient was the emergency department waiting room, BUN elevated at 21 without elevation in creatinine. Influenza COVID RSV are negative. No indication of elevated white count, H&H is within normal limits. Patient's mucous membranes are dry, will treat with 2 L of n ormal saline for dehydration. Baseline creatinine 1.0, today is 1.25. Urinalysis negative, U preg negative. EKG normal sinus, no indication of ST elevation or depression. Troponins are negative. After 2 L of fluid, patient states to feel much better. Heart rate 87 from 94. Plan of care is to discharge home, fluids are encouraged. Patient verbalized understanding of and agrees to plan of care. Verbalized understanding of signs symptoms indicating need for emergent intervention. manufacturer's service representative utilized for all correspondence. Medications Administered Discontinued Medications Generic Name Dose Route Start Last Admin Trade Name Freq PRN Reason Stop Dose Admin Sodium Chloride 1,000 mls @ 999 mls/hr 02/20/22 18:45 02/20/22 21:51 Ns IVCONT 02/20/22 20:45 Infused .Q1H1M LELA Infusion Medical Decision Making MDM Narrative Medical decision making narrative: Dehydration, influenza, COVID Medical Records Medical records reviewed: Yes I reviewed the patient's medical records. Lab Data Lab results reviewed: Yes I reviewed the patient's lab results. Result diagrams: 02/20/22 16:54 02/20/22 16:54 Labs: Lab Results 02/20/22 02/20/22 02/20/22 Range/Units 16:49 16:50 16:54 WBC 7.8 (4.8-10.8) X10*3/uL RBC 4.41 (4.20-5.50) X10*6/uL Hgb 14.2 (12.0-16.0) g/dl Hct 42.1 (37.0-47.0) % MCV 95.5 (80.0-98.0) fL MCH 32.2 (27.0-33.0) pg MCHC 33.7 (31.0-35.0) g/dl RDW 13.2 (11.0-16.0) % Plt Count 341 (160-400) X10*3/uL MPV 10.8 (9.4-12.3) fL Immature Gran % (Auto) 0.3 (0.0-0.4) % Neut % (Auto) 59.4 (45-73) % Lymph % (Auto) 29.2 (20-40) % [place] % (Auto) 9.4 (2-11) % Eos % (Auto) 1.3 (0-4) % Baso % (Auto) 0.4 (0-2) % Lymph # (Auto) 2.3 (1.2-4.9) X10*3/uL [place] # (Auto) 0.7 (0.1-1.2) X10*3/uL Eos # (Auto) 0.1 (0.0-0.4) X10*3/uL Baso # (Auto) 0.0 (0.0-0.2) X10*3/uL Abs Immat Gran (auto) 0.02 (0.00-0.03) X10*3/uL Absolute Neuts (auto) 4.6 (2.0-8.3) x10*3/uL Absolute Nucleated RBC 0.000 (0.0-0.012) X10*3/uL Nucleated RBC % (auto) 0.0 (0.0-0.2) /100WBC Sodium (135-145) mmol/L Potassium (3.3-5.1) mmol/L Chloride (96-108) mmol/L Carbon Dioxide (22-29) mmol/L Anion Gap (12-20) BUN (9-16) mg/dL Creatinine (0.5-1.4) mg/dL Estim Creat Clear Calc Estimated GFR Random Glucose (60-115) mg/dL Calcium (8.4-10.2) mg/dL Total Bilirubin (0.0-1.0) mg/dL AST (5-31) U/L ALT (0-31) U/L Alkaline Phosphatase (39-117) U/L Troponin I High Sens (<3.5-17.0) ng/L Total Protein (6.5-8.0) g/dL Albumin (3.5-5.0) g/dL Urine Color Urine Appearance Urine pH (5.0-9.0) Ur Specific [place] (1.005-1.025) Urine Protein (Neg-Trace) mg/dL Urine Glucose (UA) (Negative) mg/dL Urine Ketones (Negative) mg/dL Urine Blood (Negative) Urine Nitrite (Negative) Ur Leukocyte Esterase (Negative) Urine Test (NEGATIVE) COVID-19 (NATHAN) Negative (Negative) COVID-19 Clin Com See Note Influenza Type A (ELI) Negative (Negative) Influenza Type B (ELI) Negative (Negative) Influenza A & B Note See Note 02/20/22 02/20/22 02/20/22 Range/Units 16:54 16:54 20:41 WBC (4.8-10.8) X10*3/uL RBC (4.20-5.50) X10*6/uL Hgb (12.0-16.0) g/dl Hct (37.0-47.0) % MCV (80.0-98.0) fL MCH (27.0-33.0) pg MCHC (31.0-35.0) g/dl RDW (11.0-16.0) % Plt Count (160-400) X10*3/uL MPV (9.4-12.3) fL Immature Gran % (Auto) (0.0-0.4) % Neut % (Auto) (45-73) % Lymph % (Auto) (20-40) % [place] % (Auto) (2-11) % Eos % (Auto) (0-4) % Baso % (Auto) (0-2) % Lymph # (Auto) (1.2-4.9) X10*3/uL [place] # (Auto) (0.1-1.2) X10*3/uL Eos # (Auto) (0.0-0.4) X10*3/uL Baso # (Auto) (0.0-0.2) X10*3/uL Abs Immat Gran (auto) (0.00-0.03) X10*3/uL Absolute Neuts (auto) (2.0-8.3) x10*3/uL Absolute Nucleated RBC (0.0-0.012) X10*3/uL Nucleated RBC % (auto) (0.0-0.2) /100WBC Sodium 144 (135-145) mmol/L Potassium 3.5 D (3.3-5.1) mmol/L Chloride 110 H (96-108) mmol/L Carbon Dioxide 22 (22-29) mmol/L Anion Gap 15 (12-20) BUN 21 H (9-16) mg/dL Creatinine 1.25 (0.5-1.4) mg/dL Estim Creat Clear Calc 49.2 Estimated GFR 46 Random Glucose 91 (60-115) mg/dL Calcium 9.7 D (8.4-10.2) mg/dL Total Bilirubin 0.6 (0.0-1.0) mg/dL AST 14 (5-31) U/L ALT 11 (0-31) U/L Alkaline Phosphatase 75 (39-117) U/L Troponin I High Sens 6.6 (<3.5-17.0) ng/L Total Protein 8.1 H (6.5-8.0) g/dL Albumin 4.4 (3.5-5.0) g/dL Urine Color Yellow Urine Appearance Clear Urine pH 6.0 (5.0-9.0) Ur Specific [place] <= 1.005 (1.005-1.025) Urine Protein Negative (Neg-Trace) mg/dL Urine Glucose (UA) Negative (Negative) mg/dL Urine Ketones Negative (Negative) mg/dL Urine Blood Negative (Negative) Urine Nitrite Negative (Negative) Ur Leukocyte Esterase Negative (Negative) Urine Test (NEGATIVE) COVID-19 (NATHAN) (Negative) COVID-19 Clin Com Influenza Type A (ELI) (Negative) Influenza Type B (ELI) (Negative) Influenza A & B Note 02/20/22 Range/Units 20:41 WBC (4.8-10.8) X10*3/uL RBC (4.20-5.50) X10*6/uL Hgb (12.0-16.0) g/dl Hct (37.0-47.0) % MCV (80.0-98.0) fL MCH (27.0-33.0) pg MCHC (31.0-35.0) g/dl RDW (11.0-16.0) % Plt Count (160-400) X10*3/uL MPV (9.4-12.3) fL Immature Gran % (Auto) (0.0-0.4) % Neut % (Auto) (45-73) % Lymph % (Auto) (20-40) % [place] % (Auto) (2-11) % Eos % (Auto) (0-4) % Baso % (Auto) (0-2) % Lymph # (Auto) (1.2-4.9) X10*3/uL [place] # (Auto) (0.1-1.2) X10*3/uL Eos # (Auto) (0.0-0.4) X10*3/uL Baso # (Auto) (0.0-0.2) X10*3/uL Abs Immat Gran (auto) (0.00-0.03) X10*3/uL Absolute Neuts (auto) (2.0-8.3) x10*3/uL Absolute Nucleated RBC (0.0-0.012) X10*3/uL Nucleated RBC % (auto) (0.0-0.2) /100WBC Sodium (135-145) mmol/L Potassium (3.3-5.1) mmol/L Chloride (96-108) mmol/L Carbon Dioxide (22-29) mmol/L Anion Gap (12-20) BUN (9-16) mg/dL Creatinine (0.5-1.4) mg/dL Estim Creat Clear Calc Estimated GFR Random Glucose (60-115) mg/dL Calcium (8.4-10.2) mg/dL Total Bilirubin (0.0-1.0) mg/dL AST (5-31) U/L ALT (0-31) U/L Alkaline Phosphatase (39-117) U/L Troponin I High Sens (<3.5-17.0) ng/L Total Protein (6.5-8.0) g/dL Albumin (3.5-5.0) g/dL Urine Color Urine Appearance Urine pH (5.0-9.0) Ur Specific [place] (1.005-1.025) Urine Protein (Neg-Trace) mg/dL Urine Glucose (UA) (Negative) mg/dL Urine Ketones (Negative) mg/dL Urine Blood (Negative) Urine Nitrite (Negative) Ur Leukocyte Esterase (Negative) Urine Test NEGATIVE (NEGATIVE) COVID-19 (NATHAN) (Negative) COVID-19 Clin Com Influenza Type A (ELI) (Negative) Influenza Type B (ELI) (Negative) Influenza A & B Note ECG Data Attestation: I personally reviewed and interpreted this ECG as follows: Prior ECG tracings: not available for review Interpretation: Vent. rate 87 BPM [place] interval 124 ms QRS duration 98 ms QT/QTc 358/430 ms P-R-T axes 52 65 30 Normal sinus rhythm with sinus arrhythmia Possible Left atrial enlargement Incomplete right bundle branch block Borderline ECG No previous ECGs available 20-FEB-2022 16:47:30 Discharge Plan Discharge Clinical Impression: Acute dehydration Patient Disposition: Home, Self-Care Instructions: Dehydration (ED) Additional Instructions: You were evaluated for dehydration, with elevated BUN of 21. We gave the 2 L of IV fluid. Please drink plenty of fluids. Thank you for choosing this emergency department for evaluation. Please follow-up with primary care physician as needed. Return to the emergency department for any new, concerning, or worsening symptoms. Prescriptions: No Action ondansetron HCl [Zofran] 4 mg tablet 4 mg PO Q8H PRN (Reason: nausea and vomiting) Qty: 20 0RF amoxicillin-pot clavulanate [Augmentin] 875-125 mg tablet 1 tab PO Q12H 5 Days Qty: 10 0RF azithromycin 250 mg tablet See Rx Instructions .ROUTE .COMPLEX Qty: 6 0RF Rx Instructions: For 250 mg dose pack: take 500 mg today (day 1), then 250 mg for 4 days (days 2-5) prednisone 20 mg tablet 40 mg PO DAILY 5 Days Qty: 10 0RF amoxicillin-pot clavulanate 875-125 mg tablet 1 tab PO BID 7 Days Qty: 14 0RF albuterol sulfate 90 mcg/actuation aerosol powdr breath activated 2 inh inhalation Q4-6H PRN (Reason: shortness of breath or wheezing) Qty: 1 0RF lidocaine 5 % adhesive patch,medicated 1 patch topical DAILY PRN (Reason: pain) Qty: 15 0RF Rx Instructions: leave on most painful area for up to 12 hrs Interventions: ED Discharge Assessment Last Done: 02/20/22 22:08 Discharge Date/Time: 02/20/22 22:10
--- OUTSIDE RECORDS SUMMARY | 2022-02-20 18:57 | XMS_ITS | Continuity of Care Document ---
:1975 Author Organization [facility] Address [address] [place] [address]- Care Team Providers Name Role Phone Not on Staff, PCP Primary Care Physician Unavailable Encounter [facility] Date(s): 08/13/21 - 08/13/21 [facility] [address] [place] [id number] Discharge Disposition: A-D/C Walkout Attending Physician: Not on Staff, Attending MD Admitting Physician: Not on Staff, Admitting MD Referring Physician: Not on Staff, Referring MD Allergies, Adverse Reactions, Alerts Substance Reaction Severity Status Latex Active Medications ibuprofen 600 mg oral tablet 1 tablet = 600 mg, By Mouth, 4 times a day, PRN Pain, # 40 tablet, 0 Refills, Maintenance, 06/30/13 13:59:16, Tablet Start Date: 06/30/13 Status: OrderedPercocet 7.5/325 325 mg-7.5 mg oral tablet 2 tablet, By Mouth, 3 times a day after meals, PRN for pain, # 8 tablet, 0 Refills, Maintenance, Tablet Start Date: 09/02/11 Status: OrderedPercocet-5/325 325 mg-5 mg oral tablet 1 tablet, By Mouth, Daily at bedtime, # 8 tablet, 0 Refills, Maintenance Start Date: 09/02/11 Status: OrderedPercocet-5/325 325 mg-5 mg oral tablet 1 tablet, By Mouth, Daily at bedtime, # 8 capsule, 0 Refills, Maintenance Start Date: 09/02/11 Status: Ordered Vital Signs Most recent to oldest [Reference Range]: 1 2 Oxygen Saturation [94-100 %] 97 % 97 % (08/13/21 5:14 PM) (08/13/21 4:27 PM) Pulse Rate [55-90 bpm] 104 bpm 130 bpm *H* *H* (08/13/21 5:14 PM) (08/13/21 4:27 PM) Blood Pressure [90-138/55-84 mm Hg] 156/74 mm Hg *H* (08/13/21 5:14 PM) Respiratory Rate [16-30 br/min] 19 br/min (08/13/21 5:14 PM) Temperature [96.8-100.4 DegF] 100.4 DegF (08/13/21 5:14 PM) Liters per Minute 0 L/min (08/13/21 5:14 PM) Mode of Delivery (Oxygen) Room air (08/13/21 5:14 PM) Blood pressure sites Arm, right (08/13/21 5:14 PM) Temperature Route Oral (08/13/21 5:14 PM) Social History Social History Type Response Smoking Status Never (less than 100 in life time) entered on: 08/29/20 Sex
[2022-02-20] MEDS: 0.9 % Sodium Chloride 1,000 ML 999 ML IVCONT ×2 (19:01→19:50)
[2022-02-20 20:42] VITALS: BP 191/89; PULSE 87; RESP 18; TEMP 35.8; O2SAT 97
[2022-02-20 21:01] LABS: Appearance Urine Clear; Color Urine Yellow; Glucose Urine UA Negative (Negative); Leukocyte Esterase Urine Negative (Negative); Nitrite Urine Negative (Negative); Specific Gravity - Urine <= 1.005 (1.005-1.025); Urine Blood Negative (Negative); Urine Ketones Negative (Negative); Urine Protein Negative (Neg-Trace)
[2022-02-20 21:04] LABS: UPreg QC Valid YES; Urine Pregnancy NEGATIVE (NEGATIVE)
== END 2022-02-20 22:10 | disposition home or self-care (01) ==
PROVIDERS: Nurse Practitioner Family; Emergency Provider Emergency Medicine
DX: E86.0 Dehydration (principal); Z20.822 Contact with and (suspected) exposure to COVID-19
CPT/HCPCS: 36415; 80053; 81003; 81025; 84484; 85025; 87502; 87635; 93005; 96360; 96361; 99284

== ENCOUNTER 2022-07-07 14:45 | Emergency (ER) | payer MEDICAID, SELFPAY ==
--- NOTE | 2022-07-07 16:12 | ED.FEVER ---
HPI - Fever General Chief Complaint: Upper Respiratory Symptoms <Kathleen Christopher NP - Last Filed: 07/07/22 16:15> Stated Complaint: Headache Vomiting Fever Etc <Kathleen Christopher NP - Last Filed: 07/07/22 16:15> Time Seen by Provider: 07/07/22 17:55 <Kathleen Christopher NP - Last Filed: 07/07/22 16:15> Source: patient <Elham Mercado MD - Last Filed: 07/07/22 20:05> Mode of arrival: ambulatory <Elham Mercado MD - Last Filed: 07/07/22 20:05> History of Present Illness HPI Narrative: 46-year-old female without significant past medical history presents with complaints of headaches, subjective fevers, cough/sore throat, nausea and vomiting since 07/05. She otherwise denies any GI or symptoms. <Elham Mercado MD - Last Filed: 07/07/22 20:05> Related Data Home Medications: Previous Rx's Medication Instructions Recorded ondansetron HCl 4 mg tablet 4 mg PO Q8H PRN nausea and 09/07/20 (Zofran) vomiting #20 tabs amoxicillin 875 mg-potassium 1 tab PO Q12H 5 days #10 tabs 03/25/21 clavulanate 125 mg tablet (Augmentin) azithromycin 250 mg tablet See Rx Instructions PO .COMPLEX #6 03/25/21 tabs albuterol sulfate 90 mcg/actuation 2 inh inhalation Q4-6H PRN 05/27/21 breath activated powder inhaler shortness of breath or wheezing #1 ea amoxicillin 875 mg-potassium 1 tab PO BID 7 days #14 tabs 05/27/21 clavulanate 125 mg tablet prednisone 20 mg tablet 40 mg PO DAILY 5 days #10 tabs 05/27/21 lidocaine 5 % topical patch 1 patch topical DAILY PRN pain #15 10/22/21 ea <Kathleen Christopher NP - Last Filed: 07/07/22 16:15> Allergies/Adverse Reactions: Allergies Allergy/AdvReac Type Severity Reaction Status Date / Time No Known Allergies Allergy Verified 07/07/22 16:14 <Kathleen Christopher NP - Last Filed: 07/07/22 16:15> Review of Systems Review of Systems: Pertinent positives and negatives as stated in HPI <Elham Mercado MD - Last Filed: 07/07/22 20:05> PMFSH Past Medical History Source: nursing notes reviewed <Elham Mercado MD - Last Filed: 07/07/22 20:05> Medical History: Medical History No known health problems <Kathleen Christopher NP - Last Filed: 07/07/22 16:15> Social History Social History: Social History Advance Directives: No Advance Directives Information Provided: No <Kathleen Christopher NP - Last Filed: 07/07/22 16:15> Physical Exam Vital Signs: Vital Signs: Last Vital Signs Temp 98.0 F 07/07/22 16:14 Pulse 96 07/07/22 16:14 Resp 18 07/07/22 16:14 BP 187/84 H 07/07/22 16:14 Pulse Ox 99 07/07/22 16:14 O2 Del Method Room Air 07/07/22 16:14 BMI result Body Mass Index 24.7 <Kathleen Christopher NP - Last Filed: 07/07/22 16:15> Vital Signs: Last Vital Signs Temp 98.0 F 07/07/22 16:14 Pulse 96 07/07/22 16:14 Resp 18 07/07/22 16:14 BP 187/84 H 07/07/22 16:14 Pulse Ox 99 07/07/22 16:14 O2 Del Method Room Air 07/07/22 16:14 BMI result Body Mass Index 24.7 VITAL SIGNS: Reviewed. GENERAL: Well developed, well nourished, in no acute distress. HEAD: Normocephalic/atraumatic EYES: PERRLA, EOMI EARS: Ext canals without abnormality, TMs non-bulging and non-erythematous NOSE: Nares patent bilateral OROPHARYNX: no oral lesions noted, posterior pharynx clear and non-erythematous without noted tonsillar enlargement/erythema/exudates NECK: Supple, no adenopathy LUNGS: Normal breath sounds. No adventitious sounds or accessory muscle use. SpO2<99> CARDIOVASCULAR: Regular rate and rhythm without noted murmurs ABDOMEN: Soft, non-tender, non-distended with bowel sounds. MUSCULOSKELETAL: No tenderness, deformities, or effusions noted on gross inspection. EXTREMITIES: No cyanosis, clubbing or edema. SKIN: Inspection of the skin reveals no rashes NEUROLOGIC: Alert and oriented x 4. Strength and sensation to light touch were grossly intact x 4. <Elham Mercado MD - Last Filed: 07/07/22 20:05> Course Course Course Narrative: This is a rapid medical exam. deferred additional HPI, ROS, PE to primary provider. 46 yo female with no known medical problems here with headache, vomiting, cough, fever x 2-3 days. Here with daughter who has similar symptoms. Will send testing for flu, covid, rsv. VSS <Kathleen Christopher NP - Last Filed: 07/07/22 16:15> Medications Administered Discontinued Medications Generic Name Dose Route Start Last Admin Trade Name Freq PRN Reason Stop Dose Admin Acetaminophen 975 mg 07/07/22 18:41 07/07/22 18:50 Acetaminophen 325 Mg Tablet PO 07/07/22 18:42 975 mg ONCE ONE Administration Ibuprofen 400 mg 07/07/22 19:40 07/07/22 19:46 Ibuprofen 400 Mg Tablet PO 07/07/22 19:41 400 mg ONCE ONE Administration Ondansetron HCl 4 mg 07/07/22 17:57 07/07/22 18:02 Ondansetron Odt 4 Mg Tab.Rapdis TRANSLINGU 07/07/22 17:58 4 mg ONCE ONE Administration <Kathleen Christopher NP - Last Filed: 07/07/22 16:15> Medications Administered Discontinued Medications Generic Name Dose Route Start Last Admin Trade Name Freq PRN Reason Stop Dose Admin Acetaminophen 975 mg 07/07/22 18:41 07/07/22 18:50 Acetaminophen 325 Mg Tablet PO 07/07/22 18:42 975 mg ONCE ONE Administration Ibuprofen 400 mg 07/07/22 19:40 07/07/22 19:46 Ibuprofen 400 Mg Tablet PO 07/07/22 19:41 400 mg ONCE ONE Administration Ondansetron HCl 4 mg 07/07/22 17:57 07/07/22 18:02 Ondansetron Odt 4 Mg Tab.Rapdis TRANSLINGU 07/07/22 17:58 4 mg ONCE ONE Administration <Elham Mercado MD - Last Filed: 07/07/22 20:05> Medical Decision Making Medical Decision Making MDM Narrative: 46-year-old female with history and clinical presentation most consistent with viral syndrome, review of investigations demonstrates negative results for COVID/RSV/influenza. All results provided to the patient and she is otherwise discharged home in stable condition. <Elham Mercado MD - Last Filed: 07/07/22 20:05> Differential Diagnosis Please see the discussion above <Elham Mercado MD - Last Filed: 07/07/22 20:05> Lab Data Please see the discussion above <Elham Mercado MD - Last Filed: 07/07/22 20:05> Labs: Lab Results 07/07/22 07/07/22 07/07/22 Range/Units 16:33 18:53 18:53 Urine Color Yellow Urine Appearance Clear Urine pH 6.0 (5.0-9.0) Ur Specific [place] 1.020 (1.005-1.025) Urine Protein Trace (Neg-Trace) mg/dL Urine Glucose (UA) Negative (Negative) mg/dL Urine Ketones Negative (Negative) mg/dL Urine Blood Negative (Negative) Urine Nitrite Negative (Negative) Ur Leukocyte Esterase Negative (Negative) Urine Test NEGATIVE (NEGATIVE) Influenza Type A (PCR) NEGATIVE (Negative) Influenza Type B (PCR) NEGATIVE (Negative) RSV RNA Qual (PCR) NEGATIVE (Negative) SARS-CoV-2 RNA (RT-PCR) NEGATIVE (Negative) <Kathleen Christopher NP - Last Filed: 07/07/22 16:15> Lab Results 07/07/22 07/07/22 07/07/22 Range/Units 16:33 18:53 18:53 Urine Color Yellow Urine Appearance Clear Urine pH 6.0 (5.0-9.0) Ur Specific [place] 1.020 (1.005-1.025) Urine Protein Trace (Neg-Trace) mg/dL Urine Glucose (UA) Negative (Negative) mg/dL Urine Ketones Negative (Negative) mg/dL Urine Blood Negative (Negative) Urine Nitrite Negative (Negative) Ur Leukocyte Esterase Negative (Negative) Urine Test NEGATIVE (NEGATIVE) Influenza Type A (PCR) NEGATIVE (Negative) Influenza Type B (PCR) NEGATIVE (Negative) RSV RNA Qual (PCR) NEGATIVE (Negative) SARS-CoV-2 RNA (RT-PCR) NEGATIVE (Negative) <Elham Mercado MD - Last Filed: 07/07/22 20:05> External Record Review External record reviewed: Prior outpatient labs <Elham Mercado MD - Last Filed: 07/07/22 20:05> Discharge Plan Discharge Clinical Impression: Viral illness <Kathleen Christopher NP - Last Filed: 07/07/22 16:15> Patient Disposition: Home, Self-Care <Kathleen Christopher NP - Last Filed: 07/07/22 16:15> Instructions: Viral Syndrome (ED) <Kathleen Christopher NP - Last Filed: 07/07/22 16:15> Additional Instructions: 1. Contin?e bebiendo marek agua, trate hammad golden corporales y de lorenzo con Tylenol/ibuprofeno de venta amrit. 2. Seguimiento con anne proveedor de atenci?n primaria. Regrese a la pritesh de emergencias si los s?ntomas empeoran. 1. Continue to drink plenty of water, treat your body aches and headaches with [id number] Tylenol/ibuprofen. 2. Follow-up with your primary care provider. Return to the ER for any worsening symptoms. <Kathleen Christopher NP - Last Filed: 07/07/22 16:15> Prescriptions: No Action ondansetron HCl [Zofran] 4 mg tablet 4 mg PO Q8H PRN (Reason: nausea and vomiting) Qty: 20 0RF amoxicillin-pot clavulanate [Augmentin] 875-125 mg tablet 1 tab PO Q12H 5 Days Qty: 10 0RF azithromycin 250 mg tablet See Rx Instructions .ROUTE .COMPLEX Qty: 6 0RF Rx Instructions: For 250 mg dose pack: take 500 mg today (day 1), then 250 mg for 4 days (days 2-5) prednisone 20 mg tablet 40 mg PO DAILY 5 Days Qty: 10 0RF amoxicillin-pot clavulanate 875-125 mg tablet 1 tab PO BID 7 Days Qty: 14 0RF albuterol sulfate 90 mcg/actuation aerosol powdr breath activated 2 inh inhalation Q4-6H PRN (Reason: shortness of breath or wheezing) Qty: 1 0RF lidocaine 5 % adhesive patch,medicated 1 patch topical DAILY PRN (Reason: pain) Qty: 15 0RF Rx Instructions: leave on most painful area for up to 12 hrs <Kathleen Christopher NP - Last Filed: 07/07/22 16:15> Interventions: ED Discharge Assessment Last Done: 07/07/22 19:57 <Kathleen Christopher NP - Last Filed: 07/07/22 16:15> Discharge Date/Time: 07/07/22 19:58 <Kathleen Christopher NP - Last Filed: 07/07/22 16:15> Print Language: [place] <Kathleen Christopher NP - Last Filed: 07/07/22 16:15>
[2022-07-07 16:14] VITALS: BP 187/84; PULSE 96; RESP 18; TEMP 36.7; O2SAT 99; BMI 24.7
[2022-07-07 17:21] LABS: Influenza A PCR NEGATIVE (Negative); Influenza B PCR NEGATIVE (Negative); Resp Syncy Virus RNA Qual PCR NEGATIVE (Negative); SARS COV2 PCR INHOUSE NEGATIVE (Negative)
[2022-07-07] MEDS: Ondansetron ODT 4 MG TAB.RAPDIS TRANSLINGU (18:02)
[2022-07-07] MEDS: Acetaminophen 325 MG TABLET 975 MG PO (18:50)
[2022-07-07 19:10] LABS: Appearance Urine Clear; Color Urine Yellow; Glucose Urine UA Negative (Negative); Leukocyte Esterase Urine Negative (Negative); Nitrite Urine Negative (Negative); Urine Blood Negative (Negative); Urine Ketones Negative (Negative); Urine Protein Trace mg/dL (Neg-Trace)
[2022-07-07 19:13] LABS: UPreg QC Valid YES; Urine Pregnancy NEGATIVE (NEGATIVE)
[2022-07-07] MEDS: Ibuprofen 400 MG TABLET PO (19:46)
== END 2022-07-07 19:58 | disposition home or self-care (01) ==
PROVIDERS: Nurse Practitioner Family; Emergency Provider Student in an Organized Health Care Education/Training Program
DX: B34.9 Viral infection, unspecified (principal); R51.9 Headache, unspecified; Z20.822 Contact with and (suspected) exposure to COVID-19; R05.9 Cough, unspecified; J02.9 Acute pharyngitis, unspecified
CPT/HCPCS: 0241U; 81003; 81025; 99283